=== PATIENT | male | born 1995 | race Caucasian/White ===

== ENCOUNTER 2017-04-03 14:19 | Emergency (ER) | payer BC ==
[2017-04-03 14:29] VITALS: BP 142/78; PULSE 76; RESP 16; TEMP 98.2; O2SAT 94
--- NOTE | 2017-04-03 14:39 | EDPHY ---
H & P Time Seen by Provider: 04/03/17 14:37 HPI/ROS: CHIEF COMPLAINT: Hematemesis HISTORY OF PRESENT ILLNESS: This patient is a normally healthy 22 year old male who presents to the Emergency Department following a single episode of hematemesis late this morning. He states that he was brushing his teeth after breakfast when he accidently triggered his gag reflex, causing him to vomit. He initially vomited food and fluids, followed by bloody emesis x1. He describes a significant amount of blood in his vomit. He has a history of mild hematemesis when he gags but states that this episode was far worse. He denies nausea, abdominal pain, diarrhea, or blood in his stools. He has no additional complaints. No history of peptic ulcer disease or esophagitis. Frequent episodes of vomiting secondary to easily triggered gag reflex--smells, nasal drainage and brushing teeth trigger gag reflex. REVIEW OF SYSTEMS: Constitutional: No fever, no chills Eyes: No visual changes ENT: No sore throat Respiratory: No cough, no shortness of breath Cardiac: No chest pain Gastrointestinal: As in HPI Genitourinary: No hematuria, no dysuria Musculoskeletal: No leg pain or swelling Skin: No rash Neurological: No headache, no numbness, no weakness Psychiatric: No depression Past Medical/Surgical History: Denies. Social History: Drinks socially. Smoking Status: Never smoked Physical Exam: General Appearance: Alert, pleasant Eyes: Pupils equal and round, no conjunctival pallor ENT, Mouth: Mucous membranes moist Neck: Normal inspection Respiratory: Lungs are clear to auscultation Cardiovascular: Regular rate and rhythm Gastrointestinal: Abdomen is soft and non-tender Neurological: A&O, nonfocal, normal gait Skin: Warm and dry, no rash Extremities: normal inspection Psychiatric: Mood and affect normal Constitutional: Initial Vital Signs Temperature (C) 36.8 C 04/03/17 14:28 Heart Rate 76 04/03/17 14:28 Respiratory Rate 16 04/03/17 14:28 Blood Pressure 142/78 H 04/03/17 14:28 O2 Sat (%) 94 04/03/17 14:28 O2 Delivery Mode Room Air Allergies/Adverse Reactions: No Known Allergies Allergy (Unverified 04/03/17 14:27) Home Medications: Medication Instructions Recorded Pantoprazole Sodium [Protonix 40mg 40 mg PO DAILY #20 tab 04/03/17 (*)] Vyvanse 04/03/17 Medical Decision Making ED Course/Re-evaluation: An otherwise healthy 22-year-old male presents following an episode of hematemesis when brushing his teeth this morning. He has no associated symptoms ; no nausea, abdominal pain, melena, lightheadedness, or weakness. He is alert and well-appearing upon arrival and has a benign physical exam. 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 Will proceed with i-Stat to ensure that hematocrit levels are within normal limits. 40mg PO Protonix administered. i-Stat obtained: hct 45, hgb 15.3. He is a low risk for recurrent bleeding so I think that he can be safely discharged home. I will place him on a PPI. Warning signs and symptoms of recurrent bleeding discussed. I discussed this with the patient as well as my recommendation that he establish care with a PCP for further evaluation. He is agreeable to this. He understands customary return precautions and will be discharged home in good condition. Differential Diagnosis: The differential diagnosis for the patient's hematemesis included but was not limited to Jojo-Del Valle syndrome, gastritis, peptic ulcer disease, or esophageal varices. - Data Points Laboratory Results: 04/03/17 14:57 POC Hgb 15.3 gm/dL gm/dL (14.5-17.3) POC Hct 45 % % (42.8-50.6) POC Sodium 144 mEq/L mEq/L (134-144) POC Potassium 4.1 mEq/L mEq/L (3.3-5.0) POC Chloride 103 mEq/L mEq/L (96-108) POC BUN 12 mg/dL mg/dL (7-23) POC Creatinine 1.2 mg/dL mg/dL (0.8-1.5) POC Glucose 98 mg/dL mg/dL (70-100) Medications Given: Discontinued Medications Pantoprazole Sodium (Protonix) 40 mg PO EDNOW ONE Stop: 04/03/17 15:14 Last Admin: 04/03/17 15:19 Dose: 40 mg Point of Care Test Results: 04/03/17 14:57 POC Sodium 144 POC Potassium 4.1 POC Chloride 103 POC BUN 12 POC Creatinine 1.2 POC Glucose 98 Departure - Departure Disposition: Home, Routine, Self-Care Clinical Impression: Jojo-Del Valle tear Condition: Good Instructions: Jojo-Del Valle Syndrome (ED) Additional Instructions: 1. Follow-up with a primary care provider for further evaluation in 5-7 days if your symptoms have not completely resolved. We have referred you to our on-call provider. 2. Return to the Emergency Department with continued episodes of blood in your vomit, blood in your stool, if you feel lightheaded or weak, or for other serious concerns. Referrals: Anna Dyer DO [Doctor of Osteopathy] - As per Instructions Prescriptions: Pantoprazole Sodium [Protonix 40mg (*)] 40 mg PO DAILY #20 tab Report Scribed for: Anita Calzada Report Scribed by: Katie Meza Date of Report: 04/03/17 Time of Report: 14:38 Physician Review and Approval Statement: 04/03/17 14:38 Portions of this note were transcribed by a medical records technician. I personally performed a history, physical exam, medical decision making, and confirmed accuracy of information the transcribed note.
[2017-04-03] MEDS ORDERED: PANTOPRAZOLE SODIUM 40 MG TAB PO ONE (15:13)
== END 2017-04-03 15:27 | disposition home or self-care (01) ==
DX: K22.6 Gastro-esophageal laceration-hemorrhage syndrome (principal)
CPT/HCPCS: 82947-QW